=== PATIENT | male | born 1970 | race Caucasian/White ===

== ENCOUNTER 2018-11-18 22:59 | Emergency (ER) | payer SELFPAY ==
[2018-11-18] MEDS ORDERED: Sodium Chloride 0.9% 1,000 ML IV ONE (23:19)
[2018-11-18] MEDS ORDERED: (Novolin R) Insulin Human Regular 100 units/ml vial IV STA (23:20)
--- NOTE | 2018-11-18 23:34 | C.PDOC ---
History Of Present Illness 47 year old male is brought to the ED by EMS for evaluation. Patient was found passed out at home clutching at his abdomen c/o of pain. Patient states he drank 18 beers, then drank a huge glass of milk with sugar in it. Patient has PMHx od DM and AR, patient is non compliant with both medications. <Nishant Campuzano - Last Filed: 11/19/18 00:01> History Per: Patient, EMS, Family History/Exam Limitations: intoxication Onset/Duration Of Symptoms: Hrs Current Symptoms Are (Timing): Still Present Quality: "Pain" Recent travel outside of the [place]: No Additional History Per: Patient, EMS, Family <Nishant Campuzano - Last Filed: 11/19/18 00:01> <Kelsi Ma - Last Filed: 11/19/18 05:41> Time Seen by Provider: 11/18/18 23:19 Chief Complaint (Nursing): Chest Pain Past Medical History Reviewed: Historical Data, Nursing Documentation, Vital Signs Vital Signs: Last Vital Signs Temp Pulse 82 11/18/18 23:11 Resp 16 11/18/18 23:02 BP 158/89 H 11/18/18 23:11 Pulse Ox 97 11/18/18 23:02 - Medical History PMH: Diabetes, Hyperlipidemia Surgical History: No Surg Hx Family History: States: Unknown Family Hx - Social History Hx Alcohol Use: Yes Hx Substance Use: No - Immunization History Hx Tetanus Toxoid Vaccination: No Hx Influenza Vaccination: No Hx Pneumococcal Vaccination: No <Nishant Campuzano - Last Filed: 11/19/18 00:01> Vital Signs: Last Vital Signs Temp Pulse 82 11/18/18 23:11 Resp 16 11/18/18 23:02 BP 158/89 H 11/18/18 23:11 Pulse Ox 97 11/19/18 00:03 <Kelsi Ma - Last Filed: 11/19/18 05:41> Review Of Systems Constitutional: Negative for: Fever, Chills Cardiovascular: Negative for: Chest Pain, Palpitations Respiratory: Negative for: Shortness of Breath Gastrointestinal: Positive for: Abdominal Pain. Negative for: Nausea, Vomiting Skin: Negative for: Rash Neurological: Negative for: Weakness, Numbness, Headache, Dizziness <Nishant Campuzano - Last Filed: 11/19/18 00:01> Physical Exam - Physical Exam Appears: Non-toxic, No Acute Distress, Other (stuperous ) Skin: Normal Color, Warm, Dry Head: Atraumatic, Normacephalic Eye(s): bilateral: Normal Inspection, PERRL, EOMI Oral Mucosa: Moist Neck: Normal ROM, Supple Chest: Symmetrical Cardiovascular: Rhythm Regular Respiratory: Normal Breath Sounds, No Rales, No Rhonchi, No Wheezing Gastrointestinal/Abdominal: Soft, No Tenderness, No Distention Extremity: Normal ROM, No Tenderness, No Swelling Neurological/Psych: Oriented x3, Normal Speech, Normal Cognition Gait: Steady <JustenJean MarieGil - Last Filed: 11/19/18 00:01> ED Course And Treatment ECG: Interpreted By Me, Viewed By Me ECG Rhythm: Sinus Rhythm Rate From EC O2 Sat by Pulse Oximetry: 97 (ON RA) Pulse Ox Interpretation: Normal Reevaluation Time: 00:01 Reassessment Condition: Unchanged <Nishant Campuzano E - Last Filed: 11/19/18 00:01> - Laboratory Results Result Diagrams: 11/19/18 04:12 11/19/18 04:12 ECG: Interpreted By Me, Viewed By Me ECG Rhythm: Sinus Rhythm (81), Nonspecific Changes (mild lvh) Pulse Ox Interpretation: Normal - Radiology CXR: Interpreted by Me, Viewed By Me CXR Interpretation: No: Infiltrates, Fracture, Pnemothorax - CT Scan/US CT head Other Rad Studies (CT/US): Read By Radiologist, Radiology Report Reviewed CT/US Interpretation: CT SCAN OF THE BRAIN WITHOUT IV CONTRAST. CLINICAL INDICATION: Syncope. TECHNIQUE: Axial images of the brain obtained without IV contrast administration. Normal size of the ventricles and extra-axial spaces for the patient's age. Normal white matter tracts of the supratentorial brain. Normal basal ganglia and thalami. Normal brainstem. Normal cerebellum. There is no demonstrated extra-axial, intraparenchymal, or intraventricular hemorrhage. There are no findings of an acute ischemic infarction. Normal calvarium. There is no demonstrated fracture. Normal soft tissue structures. Normal visualized paranasal sinuses. IMPRESSION: Normal unenhanced CT scan of the brain. . Electronically signed on Nov 19, 2018 1:38:51 AM EDT by: Ana Polanco M.D., Certified by ABR, MSK, Neuroradiology Reevaluation Time: 05:40 Reassessment Condition: Improved <Kelsi Ma - Last Filed: 11/19/18 05:41> Medical Decision Making Medical Decision Making: Plan: * Labs * EKG * Iv fluids * Insulin * UA * alcohol abuse uncontrolled DM continue to monitor glucose <Nishant Campuzano - Last Filed: 11/19/18 00:01> Medical Decision Making: Upon provider reevaluation patient is feeling better, is medically stable, and requires no further treatment in the ED at this time. Patient will be discharged home . Counseling was provided and all questions were answered regarding diagnosis and need for follow up with the referred clinic. There is agreement to discharge plan. Return if symptoms persist or worsen. <Kelsi Ma - Last Filed: 11/19/18 05:41> Disposition - Disposition Disposition Time: 00:00 <Nishant Campuzano - Last Filed: 11/19/18 00:01> Counseled Patient/Family Regarding: Studies Performed, Diagnosis, Need For Followup <Kelsi Ma - Last Filed: 11/19/18 05:41> - Disposition Referrals: [facility] [Outside] Disposition: HOME/ ROUTINE Condition: FAIR Additional Instructions: Please return if symptoms recur Instructions: Alcohol Abuse and Alcoholism (DC) Forms: [facility] (Maori) Print Language: SYRIAC - Clinical Impression Clinical Impression: Hyperglycemia, Alcohol intoxication - Scribe Statement The provider has reviewed the documentation as recorded by the Scribe Jony Potts All medical record entries made by the Scribe were at my direction and personally dictated by me. I have reviewed the chart and agree that the record accurately reflects my personal performance of the history, physical exam, medical decision making, and the department course for this patient. I have also personally directed, reviewed, and agree with the discharge instructions and disposition. <Nihsant Campuzano - Last Filed: 11/19/18 00:01> Physician Patient Turnover Patient Signed Over To: Kelsi Ma Handoff Comments: f/u labs and dispo appropriately <Nishant Campuzano - Last Filed: 11/19/18 00:01>
[2018-11-18] MEDS ORDERED: (Novolin R) Insulin Human Regular 100 units/ml vial ONE (23:37)
[2018-11-19 00:23] LABS: URINE BILIRUBIN NEGATIVE (NEGATIVE); URINE BLOOD NEGATIVE (NEGATIVE); URINE CLARITY Clear (Clear); URINE COLOR Straw (YELLOW); URINE GLUCOSE (UA) 3+ mg/dL (Normal); URINE LEUKOCYTE ESTERASE NEG Leu/uL (Negative); URINE PROTEIN NEGATIVE (NEGATIVE); URINE UROBILINOGEN NORMAL mg/dL (0.2-1.0)
[2018-11-19 00:27] LABS: BASO % 0.7 % (0.0-2.0); EOS # 0.1 K/uL (0.0-0.7); EOS % 1.7 % (0.0-4.0); HEMOGLOBIN 15.7 g/dL (12.0-18.0); LYMPH # 3.3 K/uL (1.0-4.3); LYMPH % 49.1 % (20.0-40.0); MEAN CELL VOLUME 86.1 fL (80.0-94.0); MEAN CORPUSCULAR HEMOGLOBIN 29.6 pg (27.0-31.0); MEAN CORPUSCULAR HGB CONC 34.4 g/dL (33.0-37.0); MEAN PLATELET VOLUME 10.4 fL (7.2-11.7); MONO # 0.3 K/uL (0.0-0.8); MONO % 5.3 % (0.0-10.0); NEUT # 2.9 K/uL (1.8-7.0); NEUT % 43.2 % (50.0-75.0); NRBC % 0.1 % (0.0-2.0); RBC 5.29 Mil/uL (4.40-5.90); RED CELL DISTRIBUTION WIDTH 13.1 % (11.5-14.5); WHITE BLOOD COUNT 6.6 K/uL (4.8-10.8)
[2018-11-19 00:31] LABS: ACETAMINOPHEN < 10.0 ug/mL (10.0-30.0); SALICYLATE < 1.0 mg/dL 1
[2018-11-19 00:33] LABS: BARBITURATES, UR NEGATIVE (NEGATIVE); BENZODIAZEPINES, UR NEGATIVE (NEGATIVE); OPIATES, UR NEGATIVE (NEGATIVE); PHENCYCLIDINE, UR NEGATIVE (NEGATIVE)
[2018-11-19 00:35] LABS: ALB/GLOB RATIO 1.6 (1.0-2.1); ALBUMIN 5.2 g/dL (3.5-5.0); ALT/SGPT 11 U/L (21-72); AST/SGOT 20 U/L (17-59); BLOOD UREA NITROGEN 9 mg/dL (9-20); CALCIUM 10.1 mg/dl (8.6-10.4); GFR NON-AFRICAN AMERICAN > 60
[2018-11-19] MEDS ORDERED: Sodium Chloride 0.9% 1,000 ML IV ONE ×2 (00:38→04:48)
[2018-11-19 04:21] LABS: BASO % 0.6 % (0.0-2.0); EOS # 0.1 K/uL (0.0-0.7); EOS % 1.1 % (0.0-4.0); HEMOGLOBIN 14.5 g/dL (12.0-18.0); LYMPH # 1.9 K/uL (1.0-4.3); LYMPH % 32.8 % (20.0-40.0); MEAN CELL VOLUME 85.5 fL (80.0-94.0); MEAN CORPUSCULAR HEMOGLOBIN 29.7 pg (27.0-31.0); MEAN CORPUSCULAR HGB CONC 34.8 g/dL (33.0-37.0); MEAN PLATELET VOLUME 9.7 fL (7.2-11.7); MONO # 0.3 K/uL (0.0-0.8); MONO % 4.8 % (0.0-10.0); NEUT # 3.6 K/uL (1.8-7.0); NEUT % 60.7 % (50.0-75.0); NRBC % 0.1 % (0.0-2.0); RBC 4.89 Mil/uL (4.40-5.90); RED CELL DISTRIBUTION WIDTH 13.2 % (11.5-14.5); WHITE BLOOD COUNT 5.9 K/uL (4.8-10.8)
[2018-11-19 04:29] LABS: ALB/GLOB RATIO 1.9 (1.0-2.1); ALBUMIN 4.8 g/dL (3.5-5.0); ALT/SGPT 12 U/L (21-72); AST/SGOT 17 U/L (17-59); BLOOD UREA NITROGEN 9 mg/dL (9-20); CALCIUM 9.2 mg/dl (8.6-10.4); GFR NON-AFRICAN AMERICAN > 60
[2018-11-19 04:43] LABS: VENOUS BLOOD GAS BASE EXCESS -2.2 mmol/L (0.0-2.0); VENOUS BLOOD GAS PCO2 47 mmHg (40-60); VENOUS BLOOD GAS PO2 64 mm/Hg (30-55); VENOUS BLOOD PH 7.32 (7.32-7.43)
[2018-11-19 05:45] VITALS: BP 158/84; PULSE 90; RESP 13; TEMP 97.8; O2SAT 96
--- NOTE | 2018-11-19 08:29 | RAD ---
Chest x-ray single frontal view History: Detox. Comparison: None available. Findings: Mild venous congestion. Heart size within normal limits. Degenerative changes in the spine. Impression: Mild venous congestion. Heart size within normal limits. Degenerative changes in the spine.
--- NOTE | 2018-11-19 10:15 | CT ---
Date of service: 11/19/2018 PROCEDURE: CT HEAD WITHOUT CONTRAST. HISTORY: syncope COMPARISON: 06/14/2015 TECHNIQUE: Axial computed tomography images were obtained through the head/brain without intravenous contrast. Radiation dose: Total exam DLP = 1285.12 mGy-cm. This CT exam was performed using one or more of the following dose reduction techniques: Automated exposure control, adjustment of the mA and/or kV according to patient size, and/or use of iterative reconstruction technique. FINDINGS: HEMORRHAGE: No intracranial hemorrhage. BRAIN: No mass effect or edema. Scattered focal lucencies in the subcortical and periventricular white matter suggestive for chronic microvascular ischemic change. Dense bilateral basal ganglia calcifications. VENTRICLES: Unremarkable. No hydrocephalus. CALVARIUM: Unremarkable. PARANASAL SINUSES: Unremarkable as visualized. No significant inflammatory changes. MASTOID AIR CELLS: Unremarkable as visualized. No inflammatory changes. OTHER FINDINGS: Soft tissue swelling overlying the left frontal cranium. IMPRESSION: No acute intracranial abnormality. Soft tissue swelling overlying the left frontal cranium. If symptoms persists, consider correlation with MRI. A preliminary report was generated at 1:38 a.m. on 11/19/[address] Ana Polanco from [employer].
--- NOTE | 2018-11-22 15:36 | CARD ---
APPROVED REPORT Date of service: 11/18/2018 EKG Measurement Heart [id number] ME [id number] <Conclusion> Normal sinus rhythm Voltage criteria for left ventricular hypertrophy Abnormal ECG
== END 2018-11-19 05:45 | disposition home or self-care (01) ==
LOC: C.ER 22:59
DX: E11.65 Type 2 diabetes mellitus with hyperglycemia (principal); F10.129 Alcohol abuse with intoxication, unspecified; Y90.7 Blood alcohol level of 200-239 mg/100 ml; Z91.14 Patient's other noncompliance with medication regimen
CPT/HCPCS: 70450; 71045; 80053; 81001; 82009; 82803; 82948; 83735; 84100; 84484; 85025; 93005; 96361; 96374; 99285; G0480; J7030